=== PATIENT | male | born 1965 | race Caucasian/White ===

== ENCOUNTER 2017-02-22 18:07 | Emergency (ER) | payer SELFPAY ==
[~2017-02-22] VITALS: Ht 190.5 cm; Wt 103.6 kg
[~2017-02-22 18:07] MED LIST: BENTYL10 MG PO; CLEOCIN300 MG PO; LORTAB 5-325 M1 EACH PO; NAPROSYN500 MG PO; PROMETHAZINE HC25 M1 PO; ZESTORETIC,P1 TABLE2 PO
[2017-02-22 18:54] LABS: HEMATOCRIT 44.9 % (38.0-50.0); MCH 29.2 PG (29.0-34.0); MCHC 33.2 G/DL (30.0-36.0); MCV 87.9 FL (86-99); MEAN PLAT.VOLUME 10.2 uM^3 (9.0-12.4); PLATELET COUNT 238 K/uL (156-360); RBC DIS.WIDTH-CV 12.9 % (11.8-14.6); RBC DIS.WIDTH-SD 41.7 % (39-53); RED BLOOD COUNT 5.11 M/uL (4.00-5.50)
[2017-02-22 19:13] LABS: CHLORIDE 106 mEq/L (99-109); POTASSIUM 4.4 mEq/L (3.7-5.4); SODIUM 142 mEq/L (136-147)
[2017-02-22 19:15] LABS: GLUCOSE 88 mg/dL (70-99)
[2017-02-22 19:16] LABS: ANION GAP 9 MEQ/L (2-14)
[2017-02-22 19:19] LABS: GFR ESTIMATE (CALCULATED) > 59 mL/min/
[2017-02-22 19:20] LABS: UREA NITROGEN (BUN) 23 mg/dL (9-23)
[2017-02-22] MEDS ORDERED: VENTOLIN HFA18 GM IH (21:49)
[2017-02-22] MEDS ORDERED: MEDROL DOSEPAK4 MG PO (21:49)
[2017-02-22] MEDS ORDERED: LISINOPRIL40 MG PO (21:49)
[2017-02-22 22:09] VITALS: BP 163/92
== END 2017-02-22 22:12 | disposition home or self-care (01) ==
LOC: EME 18:07
DX: J98.01 Acute bronchospasm (principal); I10 Essential (primary) hypertension; Z76.0 Encounter for issue of repeat prescription; Z87.891 Personal history of nicotine dependence; Z88.0 Allergy status to penicillin
CPT/HCPCS: 71020; 80048; 85027; 94640; 99281; 99283; J7512

== ENCOUNTER 2017-11-17 08:34 | Emergency (ER) | payer OTHER ==
[~2017-11-17] VITALS: Ht 190.5 cm; Wt 101.8 kg
[~2017-11-17 08:34] MED LIST changes: +LISINOPRIL40 MG PO; +MEDROL DOSEPAK4 MG PO; +VENTOLIN HFA18 GM IH
[2017-11-17 09:06] LABS: HEMATOCRIT 45.8 % (38.0-50.0); HEMOGLOBIN 15.9 G/DL (12.5-16.6); MCH 29.8 PG (29.0-34.0); MCHC 34.7 G/DL (30.0-36.0); MCV 85.8 FL (86-99); PLATELET COUNT 233 K/uL (156-360); RBC DIS.WIDTH-CV 12.4 % (11.8-14.6); RBC DIS.WIDTH-SD 38.7 % (39-53); RED BLOOD COUNT 5.34 M/uL (4.00-5.50); WHITE BLOOD COUNT 6.7 K/uL (4.1-10.2)
[2017-11-17 09:25] LABS: CHLORIDE 103 mEq/L (99-109); SODIUM 138 mEq/L (136-147)
[2017-11-17 09:27] LABS: GLUCOSE 99 mg/dL (70-99)
[2017-11-17 09:30] LABS: GFR ESTIMATE (CALCULATED) > 59 mL/min/ (58.99-99999)
[2017-11-17 09:31] LABS: UREA NITROGEN (BUN) 16 mg/dL (9-23)
[2017-11-17] MEDS ORDERED: PROVENTIL HFA6.7 GM IH (12:57)
[2017-11-17] MEDS ORDERED: LISINOPRIL40 MG PO (12:57)
[2017-11-17 13:07] VITALS: BP 145/102
== END 2017-11-17 13:12 | disposition home or self-care (01) ==
LOC: EME 08:34
DX: J45.909 Unspecified asthma, uncomplicated (principal); I10 Essential (primary) hypertension; Z85.9 Personal history of malignant neoplasm, unspecified; Z88.0 Allergy status to penicillin
CPT/HCPCS: 71020; 80048; 85027; 94640; 99281; 99285

== ENCOUNTER 2018-02-13 21:47 | Emergency (ER) | payer OTHER ==
[~2018-02-13] VITALS: Ht 190.5 cm; Wt 102.3 kg
[~2018-02-13 21:47] MED LIST changes: +PROVENTIL HFA6.7 GM IH
[2018-02-14] MEDS ORDERED: ALBUTEROL2.5 MG/3 M IH (01:08)
[2018-02-14] MEDS ORDERED: NEBULIZER MC (01:08)
[2018-02-14] MEDS ORDERED: VENTOLIN HFA18 GM IH (01:08)
[2018-02-14] MEDS ORDERED: PREDNISONE20 MG PO (01:08)
[2018-02-14] MEDS ORDERED: FLONASE16 G1 BOTH NARES (01:08)
[2018-02-14 01:56] VITALS: BP 140/85
== END 2018-02-14 01:57 | disposition home or self-care (01) ==
LOC: EME 21:47
DX: R06.02 Shortness of breath (principal); I10 Essential (primary) hypertension; Z87.891 Personal history of nicotine dependence; Z88.0 Allergy status to penicillin
CPT/HCPCS: 71046; 94640; 99281; 99284; J1100

== ENCOUNTER 2018-05-04 19:54 | Emergency (ER) | payer OTHER ==
[~2018-05-04] VITALS: Ht 190.5 cm; Wt 103.4 kg
[~2018-05-04 19:54] MED LIST changes: +ALBUTEROL2.5 MG/3 M IH; +FLONASE16 G1 BOTH NARES; +NEBULIZER MC; +PREDNISONE20 MG PO
[2018-05-04 20:30] LABS: HEMATOCRIT 42.7 % (38.0-50.0); HEMOGLOBIN 14.8 G/DL (12.5-16.6); MCH 30.3 PG (29.0-34.0); MCHC 34.7 G/DL (30.0-36.0); MCV 87.3 FL (86-99); PLATELET COUNT 202 K/uL (156-360); RBC DIS.WIDTH-CV 12.5 % (11.8-14.6); RED BLOOD COUNT 4.89 M/uL (4.00-5.50); WHITE BLOOD COUNT 10.6 K/uL (4.1-10.2)
[2018-05-04 20:38] LABS: CHLORIDE 106 mEq/L (99-109); POTASSIUM 3.4 mEq/L (3.7-5.4); SODIUM 144 mEq/L (136-147)
[2018-05-04 20:40] LABS: GLUCOSE 112 mg/dL (70-99)
[2018-05-04 20:42] LABS: APPEARANCE CLEAR ((CLEAR)); BILIRUBIN NEGATIVE; BLOOD NEGATIVE; COLOR YELLOW ((YELLOW)); GLUCOSE (STRIP) NEGATIVE; KETONES NEGATIVE; LEUKOCYTES NEGATIVE; NITRITE NEGATIVE; PROTEIN (STRIP) NEGATIVE; SPECIFIC GRAVITY 1.025 (1.000-1.030); UCUL ADDED? NO; UROBILINOGEN 0.2 MG/DL (0.2-1.0)
[2018-05-04 20:44] LABS: CREATININE 1.2 mg/dL (0.6-1.3); GFR ESTIMATE (CALCULATED) > 59 mL/min/ (58.99-99999)
[2018-05-04 20:45] LABS: UREA NITROGEN (BUN) 19 mg/dL (9-23)
[2018-05-04 20:50] LABS: TROP-I INTERPRETATION NEGATIVE; TROPONIN-I < 0.01 ng/mL (0.0-0.30)
[2018-05-04] MEDS ORDERED: LISINOPRIL40 MG PO (21:52)
[2018-05-04 22:05] VITALS: BP 155/92
== END 2018-05-04 22:02 | disposition home or self-care (01) ==
LOC: EME 19:54
PROVIDERS: Physician Assistant
DX: I10 Essential (primary) hypertension (principal); R51 Headache; R55 Syncope and collapse; Z88.0 Allergy status to penicillin
CPT/HCPCS: 70450; 71046; 80048; 81003; 84484; 85027; 93005